=== PATIENT | male | born 1955 | race Asian ===

== ENCOUNTER 2017-04-02 18:23 | Emergency (ER) | payer OTHER ==
[~2017-04-02] VITALS: Ht 180.3 cm; Wt 74.8 kg
[2017-04-02 18:38] VITALS: BP 149/89; Ht 180.3 cm; Wt 74.8 kg
== END 2017-04-02 21:23 | disposition home or self-care (01) ==
LOC: ED 18:23
DX: S61.011A Laceration without foreign body of right thumb without damage to nail, initial encounter (principal); E11.9 Type 2 diabetes mellitus without complications; E78.00 Pure hypercholesterolemia, unspecified; X58.XXXA Exposure to other specified factors, initial encounter; Y93.89 Activity, other specified; Y92.89 Other specified places as the place of occurrence of the external cause; Y99.8 Other external cause status
CPT/HCPCS: 90715; J2001